=== PATIENT | female | born 1995 | race Caucasian/White ===

== ENCOUNTER 2025-04-16 23:42 | Emergency (ER) | payer MEDICAID ==
[~2025-04-16] VITALS: Ht 162.6 cm; Wt 63.5 kg
[2025-04-17 01:47] VITALS: BP 115/71; TEMP 98.1
[2025-04-17] MEDS ORDERED: AZIT250T PO (04:59)
[2025-04-17] MEDS ORDERED: NEOM10DR11 RIGHT EAR (04:59)
[2025-04-17] MEDS ORDERED: AZITHROMYCIN 250 MG TABLET PO ONE (05:00)
[2025-04-17] MEDS ORDERED: AZITHROMYCIN 250 MG TABLET ONE (05:06)
[2025-04-17 05:09] VITALS: O2SAT 97
== END 2025-04-17 05:10 | disposition home or self-care (01) ==
LOC: ER 23:46
DX: H92.01 Otalgia, right ear (principal); J02.9 Acute pharyngitis, unspecified; R50.9 Fever, unspecified; Z60.2 Problems related to living alone